=== PATIENT | male | born 1945 | race Two or more races ===

== ENCOUNTER 2016-09-23 20:54 | Emergency (ER) | payer MEDICARE ==
[~2016-09-23] VITALS: Ht 175.3 cm; Wt 75.6 kg
[2016-09-23 22:26] VITALS: BP 125/70
== END 2016-09-23 22:28 | disposition home or self-care (01) ==
LOC: ED 22:22
DX: S30.812A Abrasion of penis, initial encounter (principal); I10 Essential (primary) hypertension; M19.90 Unspecified osteoarthritis, unspecified site; Z85.9 Personal history of malignant neoplasm, unspecified; X58.XXXA Exposure to other specified factors, initial encounter; Y93.89 Activity, other specified; Y92.89 Other specified places as the place of occurrence of the external cause; Y99.8 Other external cause status
CPT/HCPCS: 99283

== ENCOUNTER 2016-10-20 10:06 | Emergency (ER) | payer MEDICARE ==
[~2016-10-20] VITALS: Ht 175.3 cm; Wt 70.1 kg
[2016-10-20] MEDS ORDERED: SODIUM CHLORIDE 0.9% 1,000 ML IV ONE (10:43)
[2016-10-20 11:35] LABS: BLOOD UREA NITROGEN 17 mg/dL (7-18)
[2016-10-20 11:47] LABS: ASPARTATE AMINO TRANSFERASE 18 U/L (15-37)
[2016-10-20 14:01] VITALS: BP 143/71
== END 2016-10-20 14:36 | disposition home or self-care (01) ==
LOC: ED 14:03
DX: R53.1 Weakness (principal); I10 Essential (primary) hypertension; M19.90 Unspecified osteoarthritis, unspecified site; Z86.73 Personal history of transient ischemic attack (TIA), and cerebral infarction without residual deficits; Z93.3 Colostomy status
CPT/HCPCS: 36415; 74022; 80053; 81001; 83690; 85025; 93005; 96360; 96361; 99285; J7030

== ENCOUNTER 2016-10-21 03:50 | Inpatient (IN) | payer MEDICARE ==
[~2016-10-21] VITALS: Ht 175.3 cm; Wt 72.0 kg
[2016-10-21] MEDS ORDERED: SODIUM CHLORIDE 0.9% 1,000ML IVBOLUS ONE (04:30)
[2016-10-21] MEDS ORDERED: ONDANSETRON 2MG/ML, 2ML ONE (04:52)
[2016-10-21] MEDS ORDERED: MECLIZINE CHEWABLE 25 MG TAB ONE (04:52)
[2016-10-21 04:58] LABS: ASPARTATE AMINO TRANSFERASE 19 U/L (15-37); BLOOD UREA NITROGEN 19 mg/dL (7-18)
[2016-10-21] MEDS ORDERED: MECLIZINE CHEWABLE 25 MG TAB PO ONE (05:00)
[2016-10-21] MEDS ORDERED: ONDANSETRON 2MG/ML, 2ML IVPush ONE (05:00)
[2016-10-21] MEDS ORDERED: SODIUM CHLORIDE 0.9% 1,000 ML IV ONE (06:06)
[2016-10-21] MEDS ORDERED: SODIUM CHLORIDE FLUSH 10ML SYR IVF PRN (06:30)
[2016-10-21 06:36] LABS: IS PT STATUS REG ER OR PRE ER? YES
[2016-10-21] MEDS ORDERED: morphine SULFATE 10 MG/ML, 1ML IVPush PRN (07:30)
[2016-10-21] MEDS ORDERED: ACETAMINOPHEN 325 MG TABLET PO PRN (07:30)
[2016-10-21] MEDS ORDERED: ENALAPRILAT 1.25 MG/ML, 2ML IVPush PRN (07:30)
[2016-10-21] MEDS ORDERED: ONDANSETRON 2MG/ML, 2ML IVPush PRN (07:30)
[2016-10-21] MEDS ORDERED: HYDROcodone/APAP 5/325 TABLET PO PRN (07:30)
[2016-10-21 08:45] VITALS: BP 157/79
[2016-10-21] MEDS: PANTOPROZOLE 40MG TABLET PO SCH (09:28)
[2016-10-21 09:34] VITALS: BP 157/79
[2016-10-21] MEDS: INSULIN ASPART 100 UNITS/ML, PEN SQ-INSULIN SCH ×3 (11:00→21:00)
[2016-10-21] MEDS ORDERED: GADOBUTROL 7.5 MMOL/7.5 ML PFS ONE (12:01)
[2016-10-21 13:00] LABS: IS PT STATUS REG ER OR PRE ER? NO
[2016-10-21 14:00] VITALS: BP 147/81
[2016-10-21 19:33] LABS: IS PT STATUS REG ER OR PRE ER? NO
[2016-10-21 20:30] VITALS: BP 136/83
[2016-10-22 03:00] VITALS: BP 136/79
[2016-10-22 05:52] LABS: ASPARTATE AMINO TRANSFERASE 12 U/L (15-37)
[2016-10-22 05:59] LABS: BLOOD UREA NITROGEN 10 mg/dL (7-18)
[2016-10-22 06:36] VITALS: BP 151/85
[2016-10-22] MEDS: INSULIN ASPART 100 UNITS/ML, PEN SQ-INSULIN SCH ×4 (07:00→20:39)
[2016-10-22] MEDS: ENOXAPARIN 40 MG/0.4 ML SQ SCH (11:25)
[2016-10-22] MEDS: PANTOPROZOLE 40MG TABLET PO SCH (11:25)
[2016-10-22 14:36] VITALS: BP 132/76
[2016-10-22] MEDS: ASPIRIN 81 MG TABLET EC PO SCH (17:41)
[2016-10-22 19:06] VITALS: BP 153/79
[2016-10-22] MEDS: SIMVASTATIN 40 MG TABLET PO SCH (21:48)
[2016-10-23 00:30] VITALS: BP 159/73
[2016-10-23] MEDS: ASPIRIN 81 MG TABLET EC PO SCH (05:52)
[2016-10-23] MEDS: INSULIN ASPART 100 UNITS/ML, PEN SQ-INSULIN SCH ×4 (07:00→21:52)
[2016-10-23 07:51] VITALS: BP 153/78
[2016-10-23] MEDS: PANTOPROZOLE 40MG TABLET PO SCH (08:16)
[2016-10-23] MEDS: ENOXAPARIN 40 MG/0.4 ML SQ SCH (08:17)
[2016-10-23 14:18] VITALS: BP 154/74
[2016-10-23 18:54] VITALS: BP 162/88
[2016-10-23] MEDS: SIMVASTATIN 40 MG TABLET PO SCH (21:36)
[2016-10-24 02:00] VITALS: BP_SYST 183; BP_SYST 186; BP_DIAS 80; BP_DIAS 87
[2016-10-24 04:30] VITALS: BP 162/77
[2016-10-24] MEDS: ASPIRIN 81 MG TABLET EC PO SCH (04:54)
[2016-10-24] MEDS: INSULIN ASPART 100 UNITS/ML, PEN SQ-INSULIN SCH ×4 (07:00→21:00)
[2016-10-24] MEDS: PANTOPROZOLE 40MG TABLET PO SCH (07:43)
[2016-10-24] MEDS: ENOXAPARIN 40 MG/0.4 ML SQ SCH (07:43)
[2016-10-24 09:40] VITALS: BP 146/78
[2016-10-24 13:34] VITALS: BP 139/82
[2016-10-24 18:26] VITALS: BP 147/66
[2016-10-24] MEDS: SIMVASTATIN 40 MG TABLET PO SCH (21:17)
[2016-10-25 02:31] VITALS: BP 174/78
[2016-10-25] MEDS: ASPIRIN 81 MG TABLET EC PO SCH (06:14)
[2016-10-25] MEDS: INSULIN ASPART 100 UNITS/ML, PEN SQ-INSULIN SCH ×4 (07:00→21:00)
[2016-10-25 07:37] VITALS: BP 166/84
[2016-10-25] MEDS: ENOXAPARIN 40 MG/0.4 ML SQ SCH (08:09)
[2016-10-25] MEDS: PANTOPROZOLE 40MG TABLET PO SCH (08:09)
[2016-10-25] MEDS ORDERED: MECL-76 PO (10:05)
[2016-10-25] MEDS ORDERED: ASPI-621 PO (10:05)
[2016-10-25] MEDS ORDERED: AMLO5TAB2 PO (10:07)
[2016-10-25] MEDS ORDERED: SIMV40TA3 PO (10:11)
[2016-10-25] MEDS: AMLODIPINE 5 MG TABLET PO SCH ×2 (10:44→21:00)
[2016-10-25 13:37] VITALS: BP 133/74
[2016-10-25 18:29] VITALS: BP 131/72
[2016-10-25] MEDS: SIMVASTATIN 40 MG TABLET PO SCH (21:00)
[2016-10-26 01:42] VITALS: BP 135/80
[2016-10-26] MEDS: ASPIRIN 81 MG TABLET EC PO SCH (06:29)
[2016-10-26 06:50] VITALS: BP 143/72
[2016-10-26] MEDS: INSULIN ASPART 100 UNITS/ML, PEN SQ-INSULIN SCH ×2 (08:15→12:21)
[2016-10-26] MEDS: AMLODIPINE 5 MG TABLET PO SCH (09:01)
[2016-10-26] MEDS: ENOXAPARIN 40 MG/0.4 ML SQ SCH (09:01)
[2016-10-26] MEDS: PANTOPROZOLE 40MG TABLET PO SCH (09:01)
[2016-10-26 15:40] VITALS: BP 165/90
== END 2016-10-26 15:47 | DRG 64 ==
LOC: ED 05:41 → EDIP 06:06 → 4WST 07:50
PROVIDERS: ADMIT Hospitalist; ATTEND Internal Medicine
DX: I63.511 Cerebral infarction due to unspecified occlusion or stenosis of right middle cerebral artery (principal); G93.40 Encephalopathy, unspecified; I10 Essential (primary) hypertension; I35.1 Nonrheumatic aortic (valve) insufficiency; M19.90 Unspecified osteoarthritis, unspecified site; Z79.82 Long term (current) use of aspirin; Z86.73 Personal history of transient ischemic attack (TIA), and cerebral infarction without residual deficits; Z93.3 Colostomy status; Z87.891 Personal history of nicotine dependence
CPT/HCPCS: 36415; 70450; 70553; 71010; 74022; 80053; 80061; 81001; 81003; 82140; 82962; 83036; 83690; 83735; 84100; 84439; 84443; 84484; 85025; 93005; 93306; 93880; 96361; 96374; A9585; J1650; J1815; J2405; 92523-GN; J7030

== ENCOUNTER 2017-01-12 10:37 | Inpatient (IN) | payer MEDICARE ==
[~2017-01-12] VITALS: Ht 175.3 cm; Wt 69.9 kg
[~2017-01-12 10:37] MED LIST: AMLO5TAB2 PO; ASPI-621 PO; MECL-76 PO; SIMV40TA3 PO
[2017-01-12] MEDS ORDERED: SODIUM CHLORIDE FLUSH 10ML SYR IVF ONE (11:00)
[2017-01-12 11:17] LABS: HEMATOCRIT 43.2 % (39.2-51.8); HEMOGLOBIN 14.7 g/dL (13.7-18.0); WHITE BLOOD COUNT 9.1 x10^3/uL (3.4-10)
[2017-01-12 11:31] LABS: IS PT STATUS REG ER OR PRE ER? YES
[2017-01-12 11:32] LABS: BLOOD UREA NITROGEN 16 mg/dL (7-18)
[2017-01-12] MEDS ORDERED: LABETALOL 5MG/ML, 20ML IVPush PRN (12:30)
[2017-01-12] MEDS ORDERED: SODIUM CHLORIDE FLUSH 10ML SYR IVF PRN (12:30)
[2017-01-12] MEDS ORDERED: ENALAPRILAT 1.25 MG/ML, 2ML IVPush PRN (12:30)
[2017-01-12] MEDS ORDERED: ACETAMINOPHEN 325 MG TABLET PO PRN (12:30)
[2017-01-12] MEDS ORDERED: ONDANSETRON 2MG/ML, 2ML IVPush PRN (12:30)
[2017-01-12] MEDS ORDERED: LORazepam 2 MG/ML, 1ML IV PRN ×5 (13:00)
[2017-01-12] MEDS ORDERED: GADOBUTROL 10 MMOL/10 ML PFS ONE (13:06)
[2017-01-12 13:41] VITALS: BP 146/77
[2017-01-12] MEDS: POTASSIUM CHLORIDE 20 MEQ, MAGNESIUM SULFATE 2 GM, THIAMINE 100 MG, MVI ADULT 10 ML, FO... IV SCH (15:25)
[2017-01-12] MEDS ORDERED: ASPIRIN 300 MG SUPP PR ONE (17:00)
[2017-01-12] MEDS: HEPARIN 5,000 UNITS/ML, 1ML SQ SCH (18:15)
[2017-01-12 19:58] VITALS: BP 151/72
[2017-01-12] MEDS ORDERED: ATORVASTATIN 80 MG TABLET PO SCH (21:00)
[2017-01-13] MEDS: HEPARIN 5,000 UNITS/ML, 1ML SQ SCH ×4 (01:19→20:58)
[2017-01-13 02:28] VITALS: BP 138/75
[2017-01-13 05:32] LABS: HEMATOCRIT 38.7 % (39.2-51.8); HEMOGLOBIN 13.4 g/dL (13.7-18.0); WHITE BLOOD COUNT 9.8 x10^3/uL (3.4-10)
[2017-01-13 06:01] LABS: BLOOD UREA NITROGEN 13 mg/dL (7-18)
[2017-01-13 06:02] LABS: ASPARTATE AMINO TRANSFERASE 17 U/L (15-37)
[2017-01-13 06:50] VITALS: BP 134/78
[2017-01-13] MEDS ORDERED: POTASSIUM CHLORIDE 40 MEQ in SODIUM CHLORIDE 0.9% 500 ML IV ONE (07:30)
[2017-01-13 15:15] VITALS: BP 129/65
[2017-01-13] MEDS ORDERED: SCOPOLAMINE PATCH, 1MG PATCH.TD72 TD SCH (16:00)
[2017-01-13 20:00] VITALS: BP 131/70
[2017-01-13] MEDS: POTASSIUM CHLORIDE 20 MEQ, MAGNESIUM SULFATE 2 GM, THIAMINE 100 MG, MVI ADULT 10 ML, FO... IV SCH (20:58)
[2017-01-13] MEDS: ATORVASTATIN 80 MG TABLET PO SCH (20:58)
[2017-01-14 02:00] VITALS: BP 143/67
[2017-01-14] MEDS: HEPARIN 5,000 UNITS/ML, 1ML SQ SCH ×3 (05:15→22:53)
[2017-01-14 05:37] LABS: HEMATOCRIT 40.2 % (39.2-51.8); HEMOGLOBIN 13.9 g/dL (13.7-18.0); WHITE BLOOD COUNT 9.8 x10^3/uL (3.4-10)
[2017-01-14 05:56] LABS: BLOOD UREA NITROGEN 11 mg/dL (7-18)
[2017-01-14 08:41] VITALS: BP 155/74
[2017-01-14 14:50] VITALS: BP 164/73
[2017-01-14 20:00] VITALS: BP 166/74
[2017-01-14] MEDS: ATORVASTATIN 80 MG TABLET PO SCH (21:00)
[2017-01-14] MEDS: POTASSIUM CHLORIDE 20 MEQ, MAGNESIUM SULFATE 2 GM, THIAMINE 100 MG, MVI ADULT 10 ML, FO... IV SCH (22:53)
[2017-01-14 23:30] VITALS: BP 161/82
[2017-01-15] MEDS ORDERED: ENALAPRILAT 1.25 MG/ML, 2ML IV PRN
[2017-01-15 02:00] VITALS: BP 151/72
[2017-01-15] MEDS: HEPARIN 5,000 UNITS/ML, 1ML SQ SCH (07:46)
[2017-01-15 07:51] VITALS: BP 159/81
[2017-01-15] MEDS ORDERED: ASPIRIN 81 MG TABLET CHEW PO SCH (09:00)
[2017-01-15] MEDS ORDERED: MORPHINE SULFATE 4 MG/ML, 1ML IVPush PRN (11:00)
[2017-01-15] MEDS ORDERED: PROCHLORPERAZINE 5 MG/ML, 2ML IVPush PRN (11:00)
[2017-01-15] MEDS: SCOPOLAMINE PATCH, 1MG PATCH.TD72 TD SCH (11:00)
[2017-01-15] MEDS ORDERED: ATROPINE OPHTH SOLN 1%, 5ML BC PRN (11:00)
[2017-01-15] MEDS: ATROPINE OPHTH SOLN 1%, 2ML BC PRN (12:19)
[2017-01-15] MEDS: SODIUM CHLORIDE FLUSH 10ML SYR IVF SCH (21:00)
[2017-01-16] MEDS: ATROPINE OPHTH SOLN 1%, 2ML BC PRN (00:10)
[2017-01-16] MEDS: MORPHINE SULFATE 4 MG/ML, 1ML IVPush PRN ×2 (04:43→10:42)
[2017-01-16] MEDS: LORazepam 2 MG/ML, 1ML IVPush PRN ×2 (06:25→17:52)
[2017-01-16] MEDS: SODIUM CHLORIDE FLUSH 10ML SYR IVF SCH ×2 (09:00→21:00)
[2017-01-17] MEDS: LORazepam 2 MG/ML, 1ML IVPush PRN ×2 (05:24→14:56)
[2017-01-17] MEDS: SODIUM CHLORIDE FLUSH 10ML SYR IVF SCH ×2 (09:00→19:37)
[2017-01-17] MEDS: MORPHINE SULFATE 4 MG/ML, 1ML IVPush PRN (09:21)
[2017-01-18] MEDS: SCOPOLAMINE PATCH, 1MG PATCH.TD72 TD SCH (12:41)
[2017-01-18] MEDS: MORPHINE SULFATE 4 MG/ML, 1ML IVPush PRN (19:46)
[2017-01-19] MEDS: MORPHINE SULFATE 4 MG/ML, 1ML IVPush PRN ×2 (00:38→03:46)
[2017-01-19] MEDS: ATROPINE OPHTH SOLN 1%, 2ML BC PRN (03:46)
[2017-01-19] MEDS: morphine SULFATE 125 MG in SODIUM CHLORIDE 0.9% 237.5 ML IV PRN ×2 (09:59→10:05)
[2017-01-20] MEDS: ATROPINE OPHTH SOLN 1%, 2ML BC PRN ×4 (02:26→23:53)
[2017-01-21] MEDS: morphine SULFATE 125 MG in SODIUM CHLORIDE 0.9% 237.5 ML IV PRN (05:06)
== END 2017-01-21 15:08 | disposition expired | DRG 65 ==
LOC: ED 11:18 → EDIP 12:09 → 4WST 13:38 → 3NW 01-15 13:04
PROVIDERS: ADMIT Hospitalist; ATTEND Hospitalist
PROC: 0DH67UZ Insertion of Feeding Device into Stomach, Via Natural or Artificial Opening (ICD-10-PCS; principal; 2017-01-12)
DX: I63.9 Cerebral infarction, unspecified (principal); E44.0 Moderate protein-calorie malnutrition; T17.920A Food in respiratory tract, part unspecified causing asphyxiation, initial encounter; R47.01 Aphasia; I10 Essential (primary) hypertension; Z66 Do not resuscitate; Z51.5 Encounter for palliative care; N43.3 Hydrocele, unspecified; G83.21 Monoplegia of upper limb affecting right dominant side; E78.5 Hyperlipidemia, unspecified; R29.810 Facial weakness; Z93.3 Colostomy status; Z87.891 Personal history of nicotine dependence; Z86.73 Personal history of transient ischemic attack (TIA), and cerebral infarction without residual deficits; Z85.038 Personal history of other malignant neoplasm of large intestine
CPT/HCPCS: 36415; 70450; 70553; 71010; 74000; 80048; 80053; 80061; 81001; 82040; 82140; 83735; 84100; 84439; 84443; 84484; 85025; 85610; 85730; 87040; 87086; 93005; 93306; 93880; 99285; A9585; J1644; J3411; J3475; J3480; J7042; 92523-GN; J2060; J2270; J7040; J7050